=== PATIENT | female | born 1935 | race Caucasian/White ===

== ENCOUNTER 2017-12-02 06:46 | Day surgery (SDC) | payer OTHER ==
[~2017-12-02] VITALS: Ht 154.9 cm; Wt 50.0 kg
[~2017-12-02 06:46] MED LIST: ASPI81TA82 PO; CARV12.5 PO; COLL30OI3 TOP; LORTA5 PO; MAGN400T19 PO; PLAV75TA PO; SULF1TAB47 PO
[2017-12-02] MEDS ORDERED: FLUO10TA PO (07:06)
[2017-12-02] MEDS ORDERED: ASPI-516 CHEW (07:06)
[2017-12-02] MEDS ORDERED: CARV25TA (07:06)
[2017-12-02 07:11] VITALS: BP 158/72; PULSE 52; RESP 18; TEMP 97.8; O2SAT 100
[2017-12-02 07:30] LABS: AUTOMATED NEUTROPHIL # 4.7 TH/MM3 (1.8-7.7); BASOPHIL # 0.1 TH/MM3 (0-0.2); BASOPHIL % 0.8 % (0.0-2.0); EOSINOPHIL % 0.7 % (0.0-4.0); HEMATOCRIT 40.4 % (35.0-46.0); HEMOGLOBIN 13.4 GM/DL (11.6-15.3); LYMPH % 20.4 % (9.0-44.0); LYMPHOCYTE # 1.4 TH/MM3 (1.0-4.8); MEAN CELL VOLUME 93.6 FL (80.0-100.0); MEAN CORPUSCULAR HGB CONC 33.1 % (32.0-36.0); MEAN PLATELET VOLUME 10.1 FL (7.0-11.0); MONO % 8.4 % (0.0-8.0); MONOCYTE # 0.6 TH/MM3 (0-0.9); NEUT % 69.7 % (16.0-70.0); PLATELET COUNT 155 TH/MM3 (150-450); RED BLOOD COUNT 4.32 MIL/MM3 (4.00-5.30); RED CELL DISTRIBUTION WIDTH 15.2 % (11.6-17.2); WHITE BLOOD COUNT 6.7 TH/MM3 (4.0-11.0)
[2017-12-02] MEDS ORDERED: SODIUM CHLOR 0.9% 1000 ML INJ 1,000 ML IV SCH (07:30)
[2017-12-02 07:42] LABS: INTERNATIONAL NORMALIZED RATIO 1.1 RATIO; PROTHROMBIN TIME - PATIENT 10.7 SEC (9.8-11.6)
[2017-12-02] MEDS ORDERED: LIDOCAINE 1%/EPINEPHrine 1:100,000 SOLN 20 ML VIAL ONE (07:49)
[2017-12-02] MEDS ORDERED: MIDAZOLAM HCL 2 MG/2 ML VIAL ONE (08:08)
--- NOTE | 2017-12-02 08:38 | PD.RAD ---
Post CT Procedure Prog Note Procedure Date: Dec 02, 2017 Supervising Radiologist: Tab Villanueva Anesthesia: Conscious Sedation Plan of Activity Patient to Unit: [facility] Patient Condition: Good See PACS Report for procedural detail/treatment Tab Villanueva MD Dec 02, 2017 08:38
[2017-12-02 08:50] VITALS: BP 175/69; PULSE 60; RESP 16; TEMP 97.7; O2SAT 98
[2017-12-02 09:05] VITALS: BP 181/70; PULSE 56; RESP 18; O2SAT 98
[2017-12-02 09:35] VITALS: BP 165/76; PULSE 57; RESP 18; O2SAT 96
--- NOTE | 2017-12-02 09:58 | RADRPT ---
EXAM DATE: 12/02/2017 9:55 AM EDT AGE/SEX: 82 years / Female INDICATIONS: 82-year-old female with history of new anterior epigastric peritoneal mass. CT-guided b iopsy has been requested. CLINICAL DATA: This is the patient's initial encounter. Patient reports that signs and symptoms have been present for 1 day and indicates a pain score of 0/10. MEDICAL/SURGICAL HISTORY: Cerebrovascular disease. Chronic obstructive pulmonary disease. Car cinoma, cervical. Myocardial infarction. Renal calculi. Colostomy. COMPARISON: No prior exams available for comparison. SEDATION TIME (min): 30 min BIOPSY SITE: . . Peritoneal MEDICATION(S): 1 mg midazolam (Versed) IV 50 mcg fentanyl (Sublimaze) IV DEVICE(S): 18 gauge BARD biopsy needle 17 gauge Temno needle Three core specimen(s) sent to the laboratory for pathologic evaluation. . . PROCEDURE: CT guided . . Peritoneal biopsy Conscious sedation with continuous EKG and oximetry monitoring. EKG and oximetry remained stable throughout the procedure. Prior to the procedure informed consent was obtained. Any appropriate prior imaging studies were rev iewed. Using automated exposure control and adjustment of the mA and/or kV according to patient size, radiat ion dose was kept as low as reasonably achievable to obtain optimal diagnostic quality images. DICOM format image data is available electronically for review and comparison. The site was prepped in a sterile fashion. Full sterile technique was used, including cap, mask, sarabjit rile gloves and gown and a large sterile sheet. Hand hygiene and 2% chlorhexidine and/or betadine/al cohol prep was utilized per protocol for cutaneous antisepsis. The skin and subcutaneous tissues wer e infiltrated with local anesthetic solution. With CT guidance the previously identified target was localized. Biopsy was performed using the presc ribed needle as above. Small amount of Gelfoam was injected through the tract. Adequate hemostasis w as obtained with compression at the puncture site. Follow-up CT scan reveals no hemorrhage. The patient tolerated the procedure well and there were no complications. The patient was returned to the Radiology Outpatient Unit in stable condition. CONCLUSION: 1. Uncomplicated CT guided biopsy. Electronically signed by: Tab Villanueva MD 12/02/2017 9:57 AM EDT
[2017-12-02 10:05] VITALS: BP 159/62; PULSE 58; RESP 16; O2SAT 95
== END 2017-12-02 10:42 | disposition home or self-care (01) ==
LOC: HRAD 06:46 → HRIP 06:47 → HRAD 10:42
PROVIDERS: ATTEND Surgery
DX: K31.9 Disease of stomach and duodenum, unspecified (principal); R19.06 Epigastric swelling, mass or lump; J44.9 Chronic obstructive pulmonary disease, unspecified; I25.2 Old myocardial infarction; Z85.41 Personal history of malignant neoplasm of cervix uteri
CPT/HCPCS: 49180; 77012; 85025; 85610; 85730; 88305; 99152; 99153; J2250; J3010; J7030; 88341